=== PATIENT | female | born 1985 | race Hispanic/Latino ===

== ENCOUNTER 2022-04-15 16:02 | Emergency (ER) | payer OTHER ==
[~2022-04-15] VITALS: Ht 157.5 cm; Wt 72.7 kg
[~2022-04-15 16:02] MED LIST: CIPROFLOXACN500 MG PO; METRONIDAZOL500 MG PO; NAPROSYN500 MG PO; NO HOME MEDS; ULTRAM50 M1 PO; [UNRECOGNIZED DRUG - REMARK]
[2022-04-15 17:00] VITALS: BP 125/69
[2022-04-15 17:15] VITALS: BP 116/73
[2022-04-15 17:30] VITALS: BP 126/77
[2022-04-15 17:44] LABS: BASO% 0.8 % (0-3); EOS% 2.7 % (0-8); HEMATOCRIT 26.3 % (37.0-47.0); HEMOGLOBIN 7.8 g/dl (12.0-16.0); IMMATURE GRANULOCYTES 0.2 % (0.0-5.0); LYMPH% 26.5 % (15-41); MEAN CORPUSCULAR HGB 19.8 pG CALC (26.0-32.0); MEAN CORPUSCULAR HGB CONC 29.7 g/dL CAL (32.0-36.0); MONO% 7.5 % (2-13); NEUT# 3.75 thou/uL (2.00-7.15); NEUT% 62.3 % (42-76); RED BLOOD COUNT 3.93 mill/uL (4.20-5.60); RED CELL DISTRI WIDTH 17.9 % (11.5-15.5)
[2022-04-15 17:45] VITALS: BP 124/69
[2022-04-15 17:47] LABS: MEAN CELL VOLUME 66.9 fL CALC (80.0-100.0)
[2022-04-15 18:00] VITALS: BP 122/76
[2022-04-15 18:01] LABS: ALBUMIN 4.5 g/dL (3.2-5.0); ALKALINE PHOSPHATASE 65 u/l (38-126); ANION GAP 10 (6-22 (CALC)); BILIRUBIN, TOTAL 0.3 mg/dL (0.0-1.4); BUN 10 mg/dL (7-17); BUN/CREATININE RATIO 19 (12-20 (CALC)); CARBON DIOXIDE 24 mmol/l (22-30); CHLORIDE 108 mmol/l (95-108); CREATININE 0.5 mg/dL (0.5-1.0); GFR FOR AFR.AMER. > 60 ML/MIN (>=60 (CALC)); GFR OTHER RACES > 60 ML/MIN (>=60 (CALC)); LIPASE 100 u/l (23-300); POTASSIUM 3.7 mmol/l (3.5-5.1); SGOT/AST 37 u/l (14-36); SODIUM 139 mmol/l (137-146); TOTAL PROTEIN 7.6 g/dL (6.3-8.2)
[2022-04-15] MEDS ORDERED: NAPROXEN500 MG PO (20:27)
[2022-04-15 20:31] VITALS: BP 122/76
== END 2022-04-15 20:42 | disposition home or self-care (01) | DRG 204 ==
LOC: ED 16:02
PROVIDERS: Family Medicine
DX: R07.81 Pleurodynia (principal); R51.9 Headache, unspecified; R10.12 Left upper quadrant pain; V43.62XA Car passenger injured in collision with other type car in traffic accident, initial encounter
CPT/HCPCS: Q9967